=== PATIENT | female | born 1975 | race Caucasian/White ===

== ENCOUNTER 2019-11-21 07:07 | Day surgery (SDC) | payer MEDICAID ==
[~2019-11-21] VITALS: Ht 167.6 cm; Wt 61.2 kg
[2019-11-21] MEDS ORDERED: CIPROFLOXACIN 0.3% OPHTH SOLN 2.5ML LEFTEYE ONE (07:45)
[2019-11-21 07:56] LABS: UCG SCREEN NEGATIVE
[2019-11-21] MEDS ORDERED: LACTATED RINGERS 1,000 ML IV SCH (08:15)
[2019-11-21] MEDS ORDERED: METHYLPREDNISOLONE SOD SUCC 40 MG/ML VIAL ONE (08:18)
[2019-11-21] MEDS ORDERED: FENTANYL CITRATE/PF 50MCG/ML 2ML VIAL ONE (09:02)
[2019-11-21] MEDS ORDERED: MIDAZOLAM HCL 2 MG/2 ML VIAL ONE (09:03)
[2019-11-21] MEDS ORDERED: DIPHENHYDRAMINE 50MG/ML VIAL ONE (09:03)
[2019-11-21] MEDS ORDERED: PROPOFOL 200MG/20ML VIAL IV ONE (09:08)
[2019-11-21] MEDS ORDERED: LIDOCAINE HCL/PF 1% 10 MG/ML 5ML VIAL ONE (09:08)
== END 2019-11-21 11:20 | disposition home or self-care (01) ==
LOC: OR 07:07
PROVIDERS: ATTEND Ophthalmology
DX: H11.002 Unspecified pterygium of left eye (principal); Z91.040 Latex allergy status; Z88.8 Allergy status to other drugs, medicaments and biological substances
CPT/HCPCS: 65420; 81025; 88304; J1200; J2250; J2704; J2920; J3010; J3490